=== PATIENT | male | born 1980 | race Caucasian/White ===

== ENCOUNTER 2021-07-11 14:33 | Emergency (ER) | payer OTHER, SELFPAY | END 2021-07-12 04:50 | disposition left against medical advice (07) | DX: Z53.21 Procedure and treatment not carried out due to patient leaving prior to being seen by health care provider (principal) | CPT/HCPCS: 99199 ==

== ENCOUNTER 2021-07-30 13:13 | Emergency (ER) | payer OTHER, SELFPAY ==
--- NOTE | ~2021-07-30 | XR_ITS ---
EXAMINATION: XR chest 1V portable 07/30/2021 15:04 INDICATION: Weakness. Hypertension. PROCEDURE: AP portable chest COMPARISON: 08/07/2019 FINDINGS: The lungs are clear. The cardiomediastinal silhouette is within normal limits. Small left pleural effusion.. There is no pneumothorax suspected. IMPRESSION: 1: Small left pleural effusion. Reviewed, dictated and finalized at location A.
--- NOTE | 2021-07-30 13:21 | ECG_ITS ---
Measurements Intervals [place] Rate: 100 P: 62 VT: 139 QRS: 55 QRSD: 72 T: 30 QT: 317 QTc: 409 Interpretive Statements SINUS TACHYCARDIA NONSPECIFIC T-WAVE ABNORMALITY- INFERIOR LEADS BORDERLINE ECG Electronically Signed On 07-30-2021 15:23:33 CDT by Arron Aguirre D.O.
[2021-07-30 13:30] VITALS: BP 127/84; PULSE 106; RESP 18; TEMP 37.1; O2SAT 99
[2021-07-30 14:10] LABS: Anion Gap 9 mmol/L (8-16); Blood Urea Nitrogen 25 mg/dL (9-20); Calcium 9.9 mg/dL (8.4-10.2); Carbon Dioxide 22 mmol/L (22-30); Chloride 105 mmol/L (98-107); Estimated CRCL calculation 75 ml/min; Estimated Glomerular Filt Rate > 60; Glucose 100 mg/dL (65-110); Potassium 4.7 mmol/L (3.4-5.0); Sodium 136 mmol/L (137-145)
[2021-07-30 14:26] LABS: Basophils Absolute Auto 0.1 K/mm3 (0.0-0.1); Basophils Percent Auto 0.6 % (0.2-1.2); Eosinophils Absolute Auto 0.2 K/mm3 (0-0.3); Eosinophils Percent Auto 1.6 % (0-4.4); Hematocrit 36.3 % (42.0-52.0); Hemoglobin 12.4 g/dL (14.0-18.0); Immature Granulocyte Absolute 0.09 K/mm3 (0.00-0.031); Immature Granulocyte Percent A 0.6 % (0-0.5); Lymphocytes Absolute Auto 1.91 K/mm3 (0.9-3.2); Lymphocytes Percent Auto 12.6 % (18.3-44.2); Mean Corpuscular HGB Conc 34.2 g/dl (32-36); Mean Corpuscular Hemoglobin 33.5 pg (26-34); Mean Corpuscular Volume 98.1 fl (80-100); Mean Platelet Volume 9.4 fl (7.4-10.4); Monocytes Absolute Auto 0.8 K/mm3 (0.1-0.6); Monocytes Percent Auto 5.5 % (2.6-8.5); Neutrophils Absolute Auto 12.1 K/mm3 (1.3-6.7); Neutrophils Percent Auto 79.1 % (45.5-73.1); Platelet Count Result 366 k/mm3 (150-375); Red Cell Distribution Width 13.3 % (11.5-14.5); White Blood Count 15.2 K/mm3 (4.5-10.0)
[2021-07-30] MEDS: LORazepam INJ (*CRX) 2 MG/ML VIAL 1 MG IV PUSH ×2 (15:34→18:07)
[2021-07-30] MEDS: LACTATED RINGERS 1,000 ML 999 ML IV CONT (15:35)
[2021-07-30 16:01] LABS: Add Urine Microscopic? YES; Appearance Urine Clear (Clear); Bilirubin Urine Negative (Negative); Blood Urine Negative (Negative); Color Urine Yellow (Yellow); Glucose Urine UA Negative (Negative); Ketones Urine Negative (Negative); Leukocyte Esterase Ur Negative LEU/UL (Negative); Mucus Urine Rare /lpf; Nitrate Urine Negative (Negative); Protein Urine Negative (Negative); RBC Urine 0-2 /hpf (0-2); Specific Grav Ur 1.021 (1.001-1.035); Urobilinogen Urine Negative mg/dL (<2.0); WBC Urine 0-3 /hpf
[2021-07-30 16:11] LABS: Glucose Point of Care 108 mg/dl (65-105)
--- NOTE | 2021-07-30 17:02 | ED.GENADULT ---
HPI - General Adult General Chief complaint: Arrhythmia/Palpitations Stated complaint: Palpitations Time Seen by Provider: 07/30/21 14:29 Source: patient, family and RN notes reviewed Mode of arrival: ambulatory Limitations: no limitations History of Present Illness HPI narrative: Patient is a 40-year-old male who presents to emergency department for evaluation of this morning feeling shakes and not well patient denies any URI symptoms vomiting diarrhea sick contacts patient notes that he has been compliant with his medications which are primarily psych medications patient lives at home with family. . Patient on arrival to emergency department is nondistressed he is with his family member he currently denies any pain. Related Data Allergies Allergy/AdvReac Type Severity Reaction Status Date / Time Penicillins Allergy Unknown Rash Verified 07/30/21 15:12 Review of Systems Review of Systems: All systems reviewed & are unremarkable except as noted in HPI and below PMFSH Past Medical History Medical History Bipolar disorder Blind left eye DDD (degenerative disc disease) Diabetes Essential tremor HLD (hyperlipidemia) HTN (hypertension) Hypomagnesemia MARTA (obstructive sleep apnea) Schizophrenia Tobacco abuse Exam Narrative: GENERAL: Well-appearing, well-nourished, and in no acute distress. HEAD: Normocephalic, atraumatic. EYES: PERRLA and EOMI. ENT: Nares clear, no rhinorrhea or epistaxis. Mucous membranes moist. Oropharynx without tonsillar hypertrophy exudate or other lesions. NECK: Supple. No adenopathy or masses. CHEST: Clear to auscultation. No respiratory distress. No wheezes rales or rhonchi HEART: Regular rate and rhythm. No murmur heard. Normal peripheral pulses. ABDOMEN: Soft, nontender, nondistended EXTREMITIES: Normal range of motion. No edema. SKIN: Warm, dry, no rash. NEURO: No focal deficits. Alert and oriented x3. Cranial nerves II through XII grossly intact. Normal speech and gait PSYCH: Normal mood and affect. Course Course Emergency Course: Patient evaluated in the emergency department for evaluation of tremors that began this morning there are no other signs or symptoms to suggest acute illness he was evaluated hydrated in the emergency department he is afebrile nontoxic-appearing and without emesis. Unsure as to the patient's leukocytosis. Patient will follow with primary care will return if symptoms worsen or concerns and has been given strict indications to return. Vital Signs Vital signs: Vital Signs Temperature 98.7 F 07/30/21 13:30 Pulse Rate 106 H 07/30/21 13:30 Respiratory Rate 18 07/30/21 13:30 Blood Pressure 127/84 07/30/21 13:30 Pulse Oximetry 99 07/30/21 13:30 Temperature 98.7 F 07/30/21 13:30 Pulse Rate 106 H 07/30/21 13:30 Respiratory Rate 18 07/30/21 13:30 Blood Pressure 127/84 07/30/21 13:30 Pulse Oximetry 99 07/30/21 13:30 Medical Decision Making MDM Narrative Medical decision making narrative: Patient presented with shakes not sure as to the etiology he has remained comfortable in the room nontoxic-appearing nondistressed felt appropriate for outpatient reevaluation agreeing to follow-up as instructed with primary care. Patient was made aware of his case findings treatment plan and diagnosis and findings Vital Signs Vital Signs: Vital Signs Temperature 98.7 F 07/30/21 13:30 Pulse Rate 106 H 07/30/21 13:30 Respiratory Rate 18 07/30/21 13:30 Blood Pressure 127/84 07/30/21 13:30 Pulse Oximetry 99 07/30/21 13:30 Temperature 98.7 F 07/30/21 13:30 Pulse Rate 106 H 07/30/21 13:30 Respiratory Rate 18 07/30/21 13:30 Blood Pressure 127/84 07/30/21 13:30 Pulse Oximetry 99 07/30/21 13:30 Lab Data Result diagrams: 07/30/21 13:49 07/30/21 13:49 Labs: Lab Results 07/30/21 07/30/21 07/30/21 Range/Units 13:40 13:49 1
[2021-07-30 17:40] LABS: Amphetamine Screen Urine Negative (Negative); Barbiturate Screen Urine Negative (Negative); Benzodiazepines Screen Urine Negative (Negative); Cannabinoid Screen Urine Negative (Negative); Cocaine Screen Urine Negative (Negative); Methadone Screen Urine Negative (Negative); Opiate Screen Urine Negative (Negative); Phencyclidine Screen Urine Negative (Negative)
[2021-07-30 18:13] VITALS: BP 118/79; PULSE 94; RESP 15; O2SAT 96
[2021-07-30 18:47] LABS: EDCOVIDSCREEN Negative (Negative)
[2021-07-30 19:03] VITALS: BP 114/85; PULSE 98; RESP 18; O2SAT 96
== END 2021-07-30 19:05 | disposition home or self-care (01) ==
PROVIDERS: Emergency Medicine Emergency Medical Services; Emergency Provider Emergency Medicine; PCP Family Medicine
DX: R25.1 Tremor, unspecified (principal); F31.9 Bipolar disorder, unspecified; E11.9 Type 2 diabetes mellitus without complications; E78.5 Hyperlipidemia, unspecified; I10 Essential (primary) hypertension; G47.33 Obstructive sleep apnea (adult) (pediatric); F20.9 Schizophrenia, unspecified; Z20.822 Contact with and (suspected) exposure to COVID-19; Z88.0 Allergy status to penicillin
CPT/HCPCS: 36415; 71045; 80048; 80307; 81001; 82948; 83605; 85025; 87040; 87426; 93005; 96361; 96374; 96376; 99284; C9803; J2060; J7120

== ENCOUNTER 2024-12-23 05:02 | Emergency (ER) | payer OTHER, SELFPAY ==
[2024-12-23 05:01] VITALS: BP 146/94; PULSE 110; RESP 15; TEMP 36.4; O2SAT 100
--- NOTE | 2024-12-23 05:28 | ED.EYEPROB ---
HPI - Eye Problem General Chief complaint: Eye Problems Stated complaint: eye pain History of Present Illness HPI Narrative: Patient is a 44-year-old male who presents ER with left eye pain. Worsening over last 24 hours after drying his face with a towel. No grinding. Mild photophobia in blurriness to tearing. No drainage. Related Data Allergies Allergy/AdvReac Type Severity Reaction Status Date / Time Penicillins Allergy Unknown Rash Verified 12/23/24 05:05 Review of Systems Constitutional: Constitutional: Reports no additional constitutional complaints Eyes: Eyes: Reports no additional eye complaints [facility] Past Medical History Medical History Bipolar disorder Blind left eye DDD (degenerative disc disease) Diabetes Essential tremor HLD (hyperlipidemia) HTN (hypertension) Hypomagnesemia MARTA (obstructive sleep apnea) Schizophrenia Tobacco abuse Exam Narrative: GENERAL: Well-appearing, well-nourished, and in no acute distress. HEAD: Normocephalic, atraumatic. EYES: PERRL and EOMI. Corneal abrasion left eye when viewed with magnification and fluorescence staining. No foreign body. Abrasion is just inferior the central aspect of the vision technically in the 6 o'clock position. Mild scleral injection left eye. ENT: Mucous membranes moist. EXTREMITIES: Normal range of motion. No edema. NEURO: Alert and oriented x3. PSYCH: Normal mood and affect. Course Course Emergency Course: Informed results. Discharge home. Vital Signs Vital signs: Vital Signs Temperature 97.6 F 12/23/24 05:01 Pulse Rate 110 H 12/23/24 05:01 Respiratory Rate 15 12/23/24 05:01 Blood Pressure 146/94 H 12/23/24 05:01 Pulse Oximetry 100 12/23/24 05:01 Oxygen Delivery Room Air 12/23/24 05:01 Temperature 97.6 F 12/23/24 05:01 Pulse Rate 110 H 12/23/24 05:01 Respiratory Rate 15 12/23/24 05:01 Blood Pressure 146/94 H 12/23/24 05:01 Pulse Oximetry 100 12/23/24 05:01 Oxygen Delivery Room Air 12/23/24 05:01 Discharge Plan Discharge Clinical Impression: Corneal abrasion Patient Disposition: Home, Self-Care Condition: Stable Instructions: Antibiotic Form, Corneal Abrasion (ED) Additional Instructions: Return ER if you have worsening pain in your eye, fever 100.4? F, or have additional concerns. You also may want to see an eye doctor if you have persistent discomfort. Do not wear contact lenses until your eyes healed. Patient Language: Luxembourgish Prescriptions: New erythromycin 5 mg/gram (0.5 %) ointment 1 applic LEFT EYE QID Qty: 3.5 0RF Follow-up/Referrals: Geoffrey,MD Riley [Primary Care Provider] - 1 Week
[2024-12-23] MEDS: HYDROcodone/acetaminophen (*CRX) 5-325 MG TABLET 1 TAB PO (05:45)
--- OUTSIDE RECORDS SUMMARY | 2024-12-23 05:58 | XMS_ITS | Continuity of Care Document ---
Author Organization [facility] Address [id number] [place] [address] [address] [place] [address] Phone Care Team Providers Care Psychiatric Lpn Name Role Phone Yecenia Boyd Unavailable Unavailable Advance Directives Directive Yes / No Effective Date File Name No Information Encounters Encounter Description Practice Location Reason(s) For Visit Diagnoses Date Provider Providers Copied on Encounter [facility], [address], [place], [place], [id number], [place] tel:[phone] [facility] No Information [id number] , [address], [place], [address], [place]. tel:[phone] Family History Family Member Type Diagnosis Age At Onset No Information Payers Payer name Insurance type Covered constitution party ID Authoriza tion(s) No Information Social History Type Description Quantity Date Captured Comments Sex Male Smoking Status No Information Chief Complaint And Reason For Visit No Information Reason For Referral Reason For Referral No Information History Of Present Illness Encounter Date Complaint History Of Prese nt Illness No Information Functional Status Date Functional Assessmen t No Information Instructions Date Instruction Additional Infor mation No Information Assessments Type Assessment Date No Information Patient Care Teams Name Effective Dates (start - stop) Status Members No Information
--- OUTSIDE RECORDS SUMMARY | 2024-12-23 05:58 | XMS_ITS | Data Portability ---
Author Organization [facility], Main Office Address [address] [place] [address] Assessment No assessment recorded. Plan of Treatment Reminders Order Date Submit Date Provider Last Modified By Organization Details Last Modified Time Details Appointments None recorded. Lab None recorded. Referral dermatologi st referral - Please call patient to schedule an appointment . 2023 024 [email or web address] [facility], [facility], [address], [address], 4 08:51:42 Procedures None recorded. Surgeries None recorded. Imaging US, neck, soft tissue 2023 024 [facility], [address] [place], [address], 4 08:37:39 Medication Orders omeprazole 40 mg capsule,del ayed release 2022 023 [facility], [address] [place] [address], [address], 3 14:56:26 Iron (ferrous sulfate) 325 mg (65 mg iron) tablet 2022 023 [facility], [address] [place] [address], [address], 3 14:56:26 atorvastati n 20 mg tablet 2022 023 [facility], [address] [place] [address], [address], 3 14:56:27 sertraline 100 mg tablet 2022 023 [facility], [address] [place] [address], [address], 3 14:56:27 Patient TargetsNo targets recorded. Patient InstructionsNo instructions recorded. Reason for Referral Floor Helper Referral for M ass of skin of neck eval and treat lesion to back of neck and left ear lobe Please call patient to schedule an appointment. Referring Physician: Mitch Schwartz, Family Medicine, Encounter Date: 02/10/2024 Results Created Date Observation Date Name Description Value Unit Range Abnormal Flag Note LastModifiedBy Organization Detail LastModifiedTime 06/24/2006/24/2021 HEMOG LOBIN A1C HA1C 4.8 % 4.0-6. 0 Diabe kayla Scree alayna Crite paulette: <5.7% Consi stent with absen ce of diabe kayla 5.7-6 .4% Consi stent with incre ased risk for diabe kayla (pred iabet es) >OR=6 .5% Consi stent with diabe kayla REFER ENCE: Diabe kayla Care 2016, 39(Daly ppl.1 ):s13 -s22 Not Available [facility] (Lab) [address] [place], [address], 06/24/2021 21:25:16 06/24/20 21 06/24/2021 LIPID PANEL cholesterol 180 mg/dL 140-19 9 NIH RENZO NSUS RECOM MENDA TION FOR JAMIN STERO L: ADULT CHILD LOW RISK: <200 <170 BORDE RLINE : <200- 239 ----- HIGH RISK: >240 >200 Not Available [facility] (Lab) [address] [place], [address], 06/24/2021 20:15:25 06/24/2006/24/2021 LIPID PANEL triglyceride s 188 mg/dL 0-150 high NIH RENZO NSUS REPOR T RECOM MENDA TION FOR TRIGL YCERI DEANN: ADULT CHILD LOW RISK: <150 ----- BODER LINE: 150-1 99 ----- HIGH RISK: >200 ----- Not Available [facility] (Lab) [address] [place], [address], 06/24/2021 20:15:25 06/24/20 21 06/24/2021 LIPID PANEL HDL cholesterol 83 mg/dL 40- Not Available [facility] (Lab) [address] [place], [address], 06/24/2021 20:15:25 06/24/20 21 06/24/2021 LIPID PANEL LDL cholesterol, calculated 59 mg/dL 0-130 NIH RENZO NSUS REPOR T RECOM MENDA TIONS FOR LDL: ADULT CHILD LOW RISK <130 <110 (OPTI MAL LDL) <100 ----- BORDE RLINE : 130-1 59 ----- HIGH RISK: >160 >130 A TRIGL YCERI DE RESUL T >400 INVAL IDATE S THE CALCU LATIO N FOR LDL FRACT IONAT ION - THE LDL RESUL T WILL NOT BE REPOR CECILIA. Not Available [facility] (Lab) [address] [place], [address], 06/24/2021 20:15:25 06/24/20 21 06/24/2021 MAGNE SIUM magnesium 1.5 mg/dL 1.6-2. 3 low Not Available [facility] (Lab) [address] [place], [address], 06/24/2021 20:15:18 07/16/20 23 07/16/2023 CBC W/O DIFFE RENTI AL white blood cells 10.7 x10'3 /uL 4.2-10 .8 Not Available [facility] (Lab) [address] [facility] [place], [address], 07/16/2023 19:06:52 07/16/20 23 07/16/2023 CBC W/O DIFFE RENTI AL red blood cells 4.15 x10'6 /uL 4.10-5 .80 Not Available [facility] (Lab) [address] [place], [address], 07/16/2023 19:06:52 07/16/20 23 07/16/2023 CBC W/O DIFFE RENTI AL hemoglobin 13.8 g/dL 13.2-1 7.0 Not Available [facility] (Lab) [address] [place], [address], 07/16/2023 19:06:52 07/16/20 23 07/16/2023 CBC W/O DIFFE RENTI AL hematocrit 41.1 % 39.3-5 0.0 Not Available [facility] (Lab) [address] [place], [address], 07/16/2023 19:06:52 07/16/2007/16/2023 CBC W/O DIFFE RENTI AL mean red cell volume 99.0 fL 80.0-9 7.0 high Not Available [facility] (Lab) [address] [place], [address], 07/16/2023 19:06:52 07/16/20 23 07/16/2023 CBC W/O DIFFE RENTI AL mean red cell hemoglobin 33.3 pg 27.0-3 3.0 high Not Available [facility] (Lab) [address] [place], [address], 07/16/2023 19:06:52 07/16/20 23 07/16/2023 CBC W/O DIFFE RENTI AL mean RBC HGB concentratio n 33.6 g/dL 31.0-3 6.0 Not Available [facility] (Lab) [address] [place], [address], 07/16/2023 19:06:52 07/16/2007/16/2023 CBC W/O DIFFE RENTI AL red cell distribution width 13.1 % 11.8-1 5.5 Not Available [facility] (Lab) [address] [place], [address], 07/16/2023 19:06:52 07/16/20 23 07/16/2023 CBC W/O DIFFE RENTI AL platelets 278 x10'3 /uL 150-40 0 Not Available [facility] (Lab) [address] [place], [address], 07/16/2023 19:06:52 07/16/20 23 07/16/2023 CBC W/O DIFFE RENTI AL mean platelet volume 10.1 fL 9.0-12 .4 Not Available [facility] (Lab) [address] [place], [address], 07/16/2023 19:06:52 07/16/20 23 07/16/2023 MICRO ALBUM IN RANDO M URINE microalbumin , urine 17.2 mg/L 0.0-16 .6 high Not Available [facility] (Lab) [address] [place], [address], 07/16/2023 19:39:44 07/16/20 23 07/16/2023 URINA LYSIS COMPL ETE, IRIS color YELLOW Not Available [facility] (Lab) [address] [place], [address], 07/16/2023 20:03:48 07/16/20 23 07/16/2023 URINA LYSIS COMPL ETE, IRIS appear CLEAR Not Available [facility] (Lab) [address] [place], [address], 07/16/2023 20:03:48 07/16/20 23 07/16/2023 URINA LYSIS COMPL ETE, IRIS specific gravity 1.024 1.001- 1.030 Not Available [facility] (Lab) [address] [place], [address], 07/16/2023 20:03:48 07/16/20 23 07/16/2023 URINA LYSIS COMPL ETE, IRIS pH 5.5 pH_un its 5.0-9. 0 Not Available [facility] (Lab) [address] [place], [address], 07/16/2023 20:03:48 07/16/20 23 07/16/2023 URINA LYSIS COMPL ETE, IRIS leukocytes NEGATI VE shonda/u L negati ve- Not Available [facility] (Lab) [address] [facility] [place], [address], 07/16/2023 20:03:48 07/16/20 23 07/16/2023 URINA LYSIS COMPL ETE, IRIS nitrite NEGATI VE negati ve- Not Available [facility] (Lab) [address] [place], [address], 07/16/2023 20:03:48 07/16/20 23 07/16/2023 URINA LYSIS COMPL ETE, IRIS protein 10 mg/dL negati ve- abnormal Not Available [facility] (Lab) [address] [place], [address], 07/16/2023 20:03:48 07/16/20 23 07/16/2023 URINA LYSIS COMPL ETE, IRIS glucose NORMAL mg/dL normal - Not Available [facility] (Lab) [address] [place], [address], 07/16/2023 20:03:48 07/16/20 23 07/16/2023 URINA LYSIS COMPL ETE, IRIS ketones NEGATI VE mg/dL negati ve- Not Available [facility] (Lab) [address] [place], [address], 07/16/2023 20:03:48 07/16/20 23 07/16/2023 URINA LYSIS COMPL ETE, IRIS urobilinogen NORMAL mg/dL normal - Not Available [facility] (Lab) [address] [place], [address], 07/16/2023 20:03:48 07/16/20 23 07/16/2023 URINA LYSIS COMPL ETE, IRIS bilirubin NEGATI VE mg/dL negati ve- Not Available [facility] (Lab) [address] [place], [address], 07/16/2023 20:03:48 07/16/20 23 07/16/2023 URINA LYSIS COMPL ETE, IRIS blood NEGATI VE mg/dL negati ve- Not Available [facility] (Lab) [address] [place], [address], 07/16/2023 20:03:48 07/16/20 23 07/16/2023 URINA LYSIS COMPL ETE, IRIS white blood cells 0-8 /i??h pfi?? 0-8 Not Available [facility] (Lab) [address] [place], [address], 07/16/2023 20:03:48 07/16/20 23 07/16/2023 URINA LYSIS COMPL ETE, IRIS red blood cells 0-4 /i??h pfi?? 0-4 Not Available [facility] (Lab) [address] [place], [address], 07/16/2023 20:03:48 07/16/20 23 07/16/2023 URINA LYSIS COMPL ETE, IRIS bacteria OCCASI ONAL abnormal Not Available [facility] (Lab) [address] [place], [address], 07/16/2023 20:03:48 07/16/20 23 07/16/2023 URINA LYSIS COMPL ETE, IRIS mucous OCCASI ONAL /i??l pfi?? abnormal Not Available [facility] (Lab) [address] [place], [address], 07/16/2023 20:03:48 07/16/20 23 07/16/2023 URINA LYSIS COMPL ETE, IRIS squamous epithelial OCCASI ONAL /i??l pfi?? abnormal Not Available [facility] (Lab) [address] [place], [address], 07/16/2023 20:03:48 07/16/20 23 07/16/2023 IRON/ TIBC PANEL total iron binding capacity 358 mcg/d L 265-47 5 Not Available [facility] (Lab) [address] [place], [address], 07/16/2023 21:37:58 07/16/20 23 07/16/2023 IRON/ TIBC PANEL % transferrin saturation 28 % 20-55 Not Available [facility] (Lab) [address] [place], [address], 07/16/2023 21:37:58 07/16/20 23 07/16/2023 IRON/ TIBC PANEL unsaturated iron bind capacity 257 mcg/d L 126-38 2 Not Available [facility] (Lab) [address] [place], [address], 07/16/2023 21:37:58 07/16/20 23 07/16/2023 IRON/ TIBC PANEL iron 101 mcg/d L 42-175 Not Available [facility] (Lab) [address] [place], [address], 07/16/2023 21:37:58 07/16/20 23 07/16/2023 VITAM IN D 25-HY DROXY [id number] 29.1 NG/mL 30-100 low Vitam in D Statu s: Defic ient: <20 ng/mL Insuf ficie nt: 20-29 ng/mL Suffi cient : 30-10 0 ng/mL Not Available [facility] (Lab) [address] [place], [address], 07/16/2023 21:36:13 07/16/20 23 07/16/2023 COMPR EHENS ZORA METAB OLIC PANEL sodium 137 mmol/ L 137-14 5 Not Available [facility] (Lab) [address] [place], [address], 07/16/2023 21:37:34 07/16/20 23 07/16/2023 COMPR EHENS ZORA METAB OLIC PANEL potassium 4.8 mmol/ L 3.5-5. 1 Not Available [facility] (Lab) [address] [place], [address], 07/16/2023 21:37:34 07/16/20 23 07/16/2023 COMPR EHENS ZORA METAB OLIC PANEL chloride 107 mmol/ L 98-107 Not Available [facility] (Lab) [address] [place], [address], 07/16/2023 21:37:34 07/16/20 23 07/16/2023 COMPR EHENS ZORA METAB OLIC PANEL carbon dioxide 21 mmol/ L 22-30 low Not Available [facility] (Lab) [address] [place], [address], 07/16/2023 21:37:34 07/16/20 23 07/16/2023 COMPR EHENS ZORA METAB OLIC PANEL anion gap 13.8 mmol/ L 14-22 low Not Available [facility] (Lab) [address] [place], [address], 07/16/2023 21:37:34 07/16/20 23 07/16/2023 COMPR EHENS ZORA METAB OLIC PANEL glucose 92 mg/dL 70-99 Not Available [facility] (Lab) [address] [place], [address], 07/16/2023 21:37:34 07/16/20 23 07/16/2023 COMPR EHENS ZORA METAB OLIC PANEL BUN 16 mg/dL 8-19 Not Available [facility] (Lab) [address] [place], [address], 07/16/2023 21:37:34 07/16/20 23 07/16/2023 COMPR EHENS ZORA METAB OLIC PANEL creatinine 1.12 mg/dL 0.66-1 .25 Not Available [facility] (Lab) [address] [place], [address], 07/16/2023 21:37:34 07/16/20 23 07/16/2023 COMPR EHENS ZORA METAB OLIC PANEL GFR >60 Refer ence Range : [place] ge GFR Healt hy Adult : >60 mL/mi n/1.7 3 m2 Chron ic Kidne y Disea se: 15-60 mL/mi n/1.7 3 m2 Kidne y Failu re: <15/m L/min /1.73 m2 www.n iddk. nih.g ov The MDRD study equat ion has not been valid ated in child nayeli <18 years of age; pregn ant women ; the elder ly >85 years of age; or in some racia l or ethni c subgr oups, such as Hispa nics. Outsi de the valid ated prisca eters , estim ated GFR is less accur ate, requi ring clini beau judgm ent on a case- by-ca se basis . Clini beau inter preta tion for other races and ages must be made by the clini ethan. The MDRD study equat ion has not been valid ated for the evalu ation of serum creat inine relat ed to nutri raciel l statu s or medic ation usage . For perso ns <18 years of age, a pedia tric GFR calcu lator is avail able on the [facility] websi te: https :[email or web address] escobar.bailey chance/pr ofess ional s/kdo qi/gf r_cal culat or Not Available [facility] (Lab) [address] [place], [address], 07/16/2023 21:37:34 07/16/20 23 07/16/2023 COMPR EHENS ZORA METAB OLIC PANEL alkaline phosphatase 88 U/L 38-126 Not Available [facility] (Lab) [address] [place], [address], 07/16/2023 21:37:34 07/16/20 23 07/16/2023 COMPR EHENS ZORA METAB OLIC PANEL alanine aminotransfe rase 17 U/L 0-50 Not Available [facility] (Lab) [address] [place], [address], 07/16/2023 21:37:34 07/16/20 23 07/16/2023 COMPR EHENS ZORA METAB OLIC PANEL aspartate aminotransfe rase 22 U/L 15-46 Not Available [facility] (Lab) [address] [place], [address], 07/16/2023 21:37:34 07/16/20 23 07/16/2023 COMPR EHENS ZORA METAB OLIC PANEL bilirubin, total 0.10 mg/dL 0.20-1 .30 low Not Available [facility] (Lab) [address] [place], [address], 07/16/2023 21:37:34 07/16/20 23 07/16/2023 COMPR EHENS ZORA METAB OLIC PANEL calcium 9.3 mg/dL 8.4-10 .2 Not Available [facility] (Lab) [address] [place], [address], 07/16/2023 21:37:34 07/16/20 23 07/16/2023 COMPR EHENS ZORA METAB OLIC PANEL total protein 7.7 g/dL 6.3-8. 2 Not Available [facility] (Lab) [address] [place], [address], 07/16/2023 21:37:34 07/16/20 23 07/16/2023 COMPR EHENS ZORA METAB OLIC PANEL albumin 4.5 g/dL 3.4-5. 0 Not Available [facility] (Lab) [address] [place], [address], 07/16/2023 21:37:34 07/16/20 23 07/16/2023 COMPR EHENS ZORA METAB OLIC PANEL globulin 3.2 g/dL 2.6-4. 2 Not Available [facility] (Lab) [address] [place], [address], 07/16/2023 21:37:34 07/16/20 23 07/16/2023 COMPR EHENS ZORA METAB OLIC PANEL A/G ratio 1.4 ratio 1.0-2. 0 Not Available [facility] (Lab) [address] [place], [address], 07/16/2023 21:37:34 07/16/20 23 07/16/2023 LIPID PANEL cholesterol 207 mg/dL 140-19 9 high NIH RENZO NSUS RECOM MENDA TION FOR JAMIN STERO L: ADULT CHILD LOW RISK: <200 <170 BORDE RLINE : <200- 239 ----- HIGH RISK: >240 >200 Not Available [facility] (Lab) [address] [place], [address], 07/16/2023 21:37:35 07/16/20 23 07/16/2023 LIPID PANEL triglyceride s 331 mg/dL 0-150 high NIH RENZO NSUS REPOR T RECOM MENDA TION FOR TRIGL YCERI DEANN: ADULT CHILD LOW RISK: <150 ----- BODER LINE: 150-1 99 ----- HIGH RISK: >200 ----- Not Available [facility] (Lab) [address] [place], [address], 07/16/2023 21:37:35 07/16/20 23 07/16/2023 LIPID PANEL HDL cholesterol 52 mg/dL 40- Not Available [facility] (Lab) [address] [place], [address], 07/16/2023 21:37:35 07/16/20 23 07/16/2023 LIPID PANEL LDL cholesterol, calculated 89 mg/dL 0-130 NIH RENZO NSUS REPOR T RECOM MENDA TIONS FOR LDL: ADULT CHILD LOW RISK <130 <110 (OPTI MAL LDL) <100 ----- STACIEDE RLINE : 130-1 59 ----- HIGH RISK: >160 >130 A TRIGL YCERI DE RESUL T >400 INVAL IDATE S THE CALCU LATIO N FOR LDL FRACT IONAT ION - THE LDL RESUL T WILL NOT BE REPOR CECILIA. Not Available [facility] (Lab) [address] [place], [address], 07/16/2023 21:37:35 07/16/20 23 07/16/2023 MAGNE SIUM magnesium 1.8 mg/dL 1.6-2. 3 Not Available [facility] (Lab) [address] [place], [address], 07/16/2023 21:37:38 07/16/20 23 07/16/2023 HEMOG LOBIN A1C HA1C 5.3 % 4.0-6. 0 Diabe kayla Scree alayna Crite paulette: <5.7% Consi stent with absen ce of diabe kayla 5.7-6 .4% Consi stent with incre ased risk for diabe kayla (pred iabet es) >OR=6 .5% Consi stent with diabe kayla REFER ENCE: Diabe kayla Care 2016, 39(Daly ppl.1 ):s13 -s22 Not Available [facility] (Lab) [address] [place], [address], 07/16/2023 22:19:00 07/16/20 23 07/16/2023 VITAM IN B12 (AALIYAH AI ) vb12 740 pg/mL 239-93 1 Not Available [facility] (Lab) [address] [place], [address], 07/16/2023 22:41:24 07/16/20 23 07/16/2023 FOLAT E, SERUM /PLAS MA folate 12.6 NG/mL 2.76-2 0.0 Not Available [facility] (Lab) [address] [place], [address], 07/16/2023 22:41:25 07/30/20 21 07/30/2021 XR, chest No observ ation record ed. [id number], [place], [address], 01/20/2023 01:23:36 03/03/20 24 03/02/2024 US, neck, soft tissu e No observ ation record ed. [email or web address] [facility] [address] [facility], [place], [address], 03/08/2024 10:17:18 Result Notes None recorded. Problems Name Problem SNOMED Code Status Onset Date Resolution Date Notes Provider Name and Address Organization Details Recorded Time Chronic neck pain 23088119145 07 Active 2019 [facility] Available [facility] 3 01:03:54 Mixed hyperchol esterolem ia and hypertrig lyceridem ia 077797393 Active 2017 Mell Wilkes APRN [address] [facility], [facility] [address], [place], [address] , [employer] 4 12:26:45 Chronic thoracic back pain 38944655401 9103 Active 2019 Not Available [employer] 3 01:03:54 Bipolar disorder 77272375 Active 2017 Mell Wilkes APRN [address] [facility], [address], [place], [address] , [employer] 4 12:25:50 Seborrhei c dermatiti s of scalp 747173374 Active 2018 Not Available [facility] 3 01:03:54 Snoring symptoms 430296879 Active 2017 Not Available [facility] 3 01:03:54 Hypomagne semia 567633055 Active 2020 Not Available [facility] 3 01:03:54 Anxiety disorder 430005982 Active 2020 Not Available [facility] 3 01:03:54 Overweigh t 794023505 Active 2019 Not Available [facility] 3 01:03:54 Degenerat ion of lumbar intervert ebral disc 31831333 Active 2019 Mell Wilkes APRN [address], [address], [place], [address] , [employer] 4 12:26:04 Gastroeso phageal reflux disease without esophagit is 591804216 Active 2017 Mell Wilkes APRN [address], [address], [place], [address] , [employer] 4 12:26:16 Blind left eye 942031387 Completed 201708/07/2020 Not Available [facility] 3 01:03:55 Chronic low back pain 452966255 Active 2019 Mell Wilkes APRN [address], [address], [place], [address] , [employer] 4 12:25:57 Pruritic disorder 074261389 Active 2017 Not Available [facility] 3 01:03:55 Back problem 691121950 Completed 201709/06/2018 Not Available [facility] 3 01:03:55 Hypertrig lyceridem ia 541780482 Active 2020 Mell Wilkes APRN [address], [address], [place], [address] , [employer] 4 12:26:48 Hypertrig lyceridem ia 065897912 Completed 201808/07/2020 Mell Wilkes APRN [address], [address], [place], [address] , [employer] 4 12:26:48 Type 2 diabetes mellitus without complicat ion 567658518 Active 2019 Mell Wilkes APRN [address], [address], [place], [address] , [employer] 4 12:26:19 Vitamin D deficienc y 54491345 Active 2017 Mell Wilkes APRN [address], [address], [place], [address] , [employer] 4 12:26:23 Chronic dermatiti s 79852387 Active 2017 Mell Wilkes APRN [address], [address], [place], [address] , [employer] 4 12:25:53 Depressiv e disorder 10481263 Active 2017 Not Available [facility] 3 01:03:56 Hypertens zora disorder 72674396 Active 2017 Mell Wilkes APRN [address], [place], [address] , [employer] 4 12:27:16 Obesity 322926433 Completed 201708/07/2020 Not Available [facility] 3 01:03:56 Uncontrol led type 2 diabetes mellitus 375335123 Completed 201808/07/2020 Not Available [facility] [facility] 3 01:03:57 Anxiety 20978557 Active 2017 DAVID Cano [address], [place], [address] , [employer] 4 12:25:47 Hyperlipi demia 40030395 Active 2017 DAVID Cano [address], [place], [address] , [employer] 4 12:26:58 Schizophr enia 11336659 Active 2017 Mell Wilkes APRN [address], [address], [place], [address] , [employer] 4 12:26:36 Essential tremor 270933434 Active 2017 DAVID Cano [address], [place], [address] , [employer] 4 12:26:09 Sleep apnea 49464101 Active 2017 Mell Wilkes APRN [address], [address], [place], [address] , [facility] [employer] 4 12:26:30 Sebaceous cyst of skin 524226965 Active 2019 Not Available [facility] 3 01:03:58 Smoker 61167265 Active 2017 Mell Wilkes APRN [address], [address], [place], [address] , [employer] 4 12:26:27 Degenerat ion of intervert ebral disc 46907788 Active 2019 Mell Wilkes APRN [address], [address], [place], [address] , [employer] [facility] [employer] 4 12:26:00 Obstructi ve sleep apnea syndrome 06481275 Active 2019 Not Available [facility] 3 01:03:58 Essential hypertens ion 34548533 Active 2022 Mell Wilkes APRN [address], [address], [place], [address] , [employer] [place] [facility] [employer] [facility] 4 12:26:07 Hyperglyc emia due to type 2 diabetes mellitus 49506460282 9109 Active 2022 MALIKA Shine [address], [address], [place], [address] , [employer] [facility] [employer] 3 14:48:58 Mood disorder 41876852 Active 2022 Mell Wilkes APRN [address], [address], [place], [address] , [facility] [employer] 4 12:26:40 Anemia 728680667 Active 2022 Mell Wilkes APRN [address], [place], [address] , [facility] [employer] 4 12:25:44 Fatigue 99253030 Active 2022 MALIKA Shine [address] [facility], [address] [address], [place], [address] , [facility] [employer] [facility] 3 15:47:41 Mass of skin of neck 34647721900 175740 Active 2023 ARACELI Travis [address] [address], [place], [address] , [facility] [employer] [facility] 4 15:15:45 Mass of ear structure 838975276 Active 2023 ARACELI Travis [address] [address], [place], [address] , [facility] [employer] 4 15:15:52 Problem Notes None recorded. Procedures Surgical History None recorded. Imaging Results Imaging Date Name Status LastModified by Organiz ation Details LastModified Time 07/30/2021 XR, chest completed [id number] [place], [place] [id number] [facility] [address] [place] [address], [id number], 01/20/2023 01:23:36 03/02/2024 US, neck, soft tissue completed [email or web address] [facility] [address] [place], [address], 03/08/2024 10:17:18 Procedure Notes None recorded. Medical Equipment None Reported. Allergies Allergen ID Allergen Name Allergen Category Reaction Reaction Severity Criticality Documentation Date Start Date Code Code System Note Provider Name and Address Organization Details Recorded Time 2129 Product containin g penicilli n and antibioti c (product) medicatio n Not available Not available Not available 01/20/2023 [id number] SNOMED Not Available [facility] 3 01:22:36 Medications Name Sig Start Date Stop Date Status Note LastModified by Organization Details LastModified Time cyclobenz aprine 10 mg tablet TAKE 1 TABLET BY MOUTH EVERY 12 HOURS NEEDED 06/18 completed Not Available Not Available Not Available ziprasido ne 80 mg capsule TAKE 1 CAPSULE BY MOUTH TWICE DAILY active Not Available Not Available No t Available metformin 500 mg tablet 10/31 completed Not Available Not Available Not Available primidone 50 mg tablet TAKE 2 TABLETS BY MOUTH EVERY DAY AT BEDTIME 06/18 completed Not Available Not Available Not Available bupropion HCl SR 150 mg tablet,12 hr sustained -release TK 1 T PO BID B MEALS active Not Available Not Available No t Available atorvasta tin 20 mg tablet TAKE 1 TABLET BY MOUTH EVERY NIGHT AT BEDTIME active Not Available Not Available No t Available nicotine 14 mg/24 hr daily transderm al patch APPLY 1 PATCH TOPICALL Y TO THE SKIN EVERY DAY DIRECTED active Not Available Not Available No t Available quetiapin e 300 mg tablet active Not Available Not Available Not Available ranitidin e 300 mg tablet Take 1 tablet every day by oral route at bedtime for 30 days. 01/11 completed Not Available Not Available Not Available sertralin e 100 mg tablet TAKE 1 TABLET BY MOUTH EVERY DAY IN THE MORNING 2023 active Not Available Not Available Not Avai lable quetiapin e 200 mg tablet TAKE 1 TABLET BY MOUTH EVERY DAY IN THE MORNING 06/18 completed Not Available Not Available Not Available olanzapin e 5 mg tablet TAKE 1 TABLET BY MOUTH ONCE DAILY AT BEDTIME FOR 30 DAYS 02/06 completed Not Available Not Available Not Available metformin 850 mg tablet Take 1 tablet twice a day by oral route with meals for 30 days. 10/31 completed Not Available Not Available Not Available B-D Slip Tip Syringe 20 mL B-D pen needles, to be used with insulin 3-4 times per day as directed . 06/18 completed Not Available Not Available Not Available omeprazol e 40 mg capsule,d elayed release TAKE 1 CAPSULE BY MOUTH EVERY DAY BEFORE BREAKFAS T active Not Available Not Available No t Available triamcino lone acetonide 0.1 % topical cream APPLY A THIN LAYER TO THE AFFECTED AREA(S) BY TOPICAL ROUTE 2 TIMES PER DAY 07/02 completed Not Available Not Available Not Available nystatin- triamcino lone 100,000 unit/gram -0.1 % topical ointment APPLY TO THE AFFECTED AREA(S) BY TOPICAL ROUTE 2 TIMES PER DAY active Not Available Not Available No t Available meloxicam 7.5 mg tablet TAKE 1 TABLET BY MOUTH EVERY 12 HOURS NEEDED 06/18 completed Not Available Not Available Not Available prazosin 5 mg capsule TAKE 1 CAPSULE BY MOUTH EVERY DAY AT BEDTIME 06/18 completed Not Available Not Available Not Available famotidin e 20 mg tablet 07/02 completed Not Available Not Available Not Available magnesium oxide 400 mg (241.3 mg magnesium ) tablet TAKE 1 TABLET BY MOUTH TWICE DAILY EVERY DAY 06/18 completed Not Available Not Available Not Available gemfibroz il 600 mg tablet TK 1 T PO BID active Not Available Not Available No t Available cephalexi n 500 mg capsule TAKE 1 CAPSULE BY MOUTH THREE TIMES DAILY FOR 7 DAYS 10/31 completed Not Available Not Available Not Available erythromy kenney 5 mg/gram (0.5 %) eye ointment active Not Available Not Available Not Available metformin 1,000 mg tablet TAKE 1 TABLET BY MOUTH TWICE DAILY WITH MEALS 06/18 completed Not Available Not Available Not Available ranitidin e 150 mg tablet 2 times daily active Not Available Not Available No t Available buspirone 10 mg tablet TAKE 1 TABLET BY MOUTH EVERY 12 HOURS NEEDED 06/18 completed Not Available Not Available Not Available clotrimaz ole-betam ethasone 1 %-0.05 % topical cream APPLY TO THE AFFECTED AND SURROUND ING AREAS OF SKIN BY TOPICAL ROUTE 2 TIMES PER DAY IN THE MORNING AND EVENING FOR 2 WEEKS 04/07 completed Apply to affected area bid for next 2-3 weeks as directed . Not Available Not Available Not Available lisinopri l 10 mg tablet TAKE 1/2 TABLET BY MOUTH DAILY 07/02 completed Not Available Not Available Not Available divalproe x ER 500 mg tablet,ex tended release 24 hr TAKE 2 TABLETS BY MOUTH EVERY DAY AT BEDTIME active Not Available Not Available No t Available promethaz ine 25 mg tablet TAKE 1 TABLET BY MOUTH EVERY 8 HOURS NEEDED 08/07 completed Not Available Not Available Not Available omeprazol e 20 mg capsule,d elayed release TAKE 1 CAPSULE BY MOUTH EVERY DAY 30 MINUTES BEFORE BREAKFAS T 07/02 completed Not Available Not Available Not Available olanzapin e 15 mg tablet 08/23 completed Not Available Not Available Not Available lisinopri l 5 mg tablet TAKE 1 TABLET BY MOUTH EVERY DAY 06/18 completed Not Available Not Available Not Available ziprasido ne 40 mg capsule active Not Available Not Available Not Available ibuprofen 600 mg tablet 08/14 completed Not Available Not Available Not Available Vitamin D2 1,250 mcg (50,000 unit) capsule Take 1 capsule every week by oral route as directed for 30 days. 06/18 completed Not Available Not Available Not Available ketoconaz ole 2 % topical cream APPLY TO THE AFFECTED AREA(S) BY TOPICAL ROUTE ONCE DAILY 04/07 completed Not Available Not Available Not Available metformin ER 500 mg tablet,ex tended release 24 hr TAKE 1 TABLET BY MOUTH EVERY OTHER DAY AFTER MEALS 06/18 completed Not Available Not Available Not Available sertralin e 50 mg tablet TAKE 1 TABLET BY MOUTH EVERY DAY IN THE MORNING 06/18 completed Not Available Not Available Not Available lisinopri l 2.5 mg tablet Take 1 tablet every day by oral route in the morning for 90 days. 06/18 completed Not Available Not Available Not Available doxycycli ne hyclate 100 mg tablet Take 1 tablet twice a day by oral route as directed for 10 days. active Not Available Not Available No t Available olanzapin e 20 mg tablet po once daily 06/18 completed Not Available Not Available Not Available prazosin 2 mg capsule TAKE 1 CAPSULE BY MOUTH EVERY DAY AT BEDTIME 06/18 completed Not Available Not Available Not Available pen needle, diabetic 31 gauge x 1/4 06/18 completed Not Available Not Available Not Available bupropion HCl XL 300 mg 24 hr tablet, extended release TAKE 1 TABLET BY MOUTH EVERY DAY 06/18 completed Not Available Not Available Not Available bupropion HCl XL 150 mg 24 hr tablet, extended release TK 1 T PO QD IN THE MORNING active Not Available Not Available No t Available Alcohol Prep Pads Apply 1 pad every 6-8 hours by topical route as needed for 30 days. active Not Available Not Available No t Available selenium sulfide 2.25 % shampoo APPLY TO THE AFFECTED AREA(S) BY TOPICAL ROUTE TWICE WEEKLY 07/02 completed Not Available Not Available Not Available fenofibra te 160 mg tablet TAKE 1 TABLET BY MOUTH EVERY DAY IN THE MORNING 06/18 completed Not Available Not Available Not Available omeprazol e 40mg po twice daily 09/06 completed Not Available Not Available Not Available bupropion HCl 150 mg po twice daily 08/14 completed Not Available Not Available Not Available multivita min Take one tab daily active Not Available Not Available No t Available metformin ER 500 mg 24 hr tablet,ex tended release (gastric retention ) Take 1 tablet every other day by oral route after meals for 90 days. 06/18 completed Not Available Not Available Not Available FeroSul 325 mg (65 mg iron) tablet Take 1 tablet every day by oral route. active Not Available Not Available No t Available Lantus Solostar U-100 Insulin 100 unit/mL (3 mL) subcutane ous pen INJECT 5 UNITS UNDER THE SKIN EVERY DAY DIRECTED STOP BASAGLAR active Not Available Not Available No t Available Latuda 80 mg tablet TAKE 1 TABLET BY MOUTH TWICE DAILY WITH MEALS 06/18 completed Not Available Not Available Not Available OneTouch Verio test strips USE DIRECTED TO TEST BLOOD SUGAR 06/18 completed Not Available Not Available Not Available Vascepa 1 gram capsule TAKE 2 CAPSULES BY MOUTH TWICE DAILY DIRECTED 05/29 completed Not Available Not Available Not Available aloglipti n 25 mg tablet TAKE 1 TABLET BY MOUTH EVERY DAY IN THE MORNING 05/29 completed Not Available Not Available Not Available Invokana 300 mg tablet TAKE 1 TABLET BY MOUTH ONCE DAILY 10/31 completed Not Available Not Available Not Available Jardiance 25 mg tablet TAKE 1 TABLET BY MOUTH EVERY DAY IN THE EVENING active Not Available Not Available No t Available selenium sulfide 2.5 % lotion APPLY TO WET SCALP BY TOPICAL ROUTE TWICE WEEKLY WORK INTO A FULL LATHER, LEAVE ON SCALP FOR 2-3 MINUTES, RINSE THOROUGH LY, AND THEN PAT DRY active Not Available Not Available No t Available TechLITE Pen Needle 31 gauge x 5/16 USE WITH INSULIN 3 TO 4 TIMES PER DAY UTD 06/18 completed Not Available Not Available Not Available bupropion HCl 150 mg tablet,12 hr sustained -release( smoking deterrent ) TAKE 1 TABLET BY MOUTH IN THE MORNING AND AT NOON 06/18 completed Not Available Not Available Not Available Admelog SoloStar U-100 Insulin lispro 100 unit/mL subcutane ous pen INJECT 3 UNITS THREE TIMES DAILY WITH MEALS DIRECTED 03/13 completed Not Available Not Available Not Available Steglatro 5 mg tablet TAKE 1 TABLET BY MOUTH EVERY DAY IN THE MORNING 05/29 completed Not Available Not Available Not Available OneTouch Ultra Blue Test Strip USE TO CHECK BLOOD SUGAR 2 TO 4 TIMES DAILY 06/18 completed Not Available Not Available Not Available FreeStyle Inga 14 Day [place] USE DIRECTED 06/18 completed Not Available Not Available Not Available FreeStyle Inga 14 Day Sensor kit USE DIRECTED 06/18 completed Not Available Not Available Not Available OneTouch Ultra2 Meter USE TO CHECK BLOOD SUGAR 2 TO 4 TIMES DAILY 06/18 completed Not Available Not Available Not Available OneTouch Delica Plus Lancet 33 gauge USE 2 TO 4 TIMES DAILY DIRECTED 06/18 completed Not Available Not Available Not Available Vitals Date Recorded Body mass index (BMI) Body mass index (BMI) Provider Name and Address Organization Details Last Updated DateTime 01/20/2023 24.1 kg/m2 23.6 kg/m2 Not Available [facility] 01/20/2023 00:53:12 Date Recorded Body height Body height Provider Name and Address Organization Details Last Updated DateTime 01/20/2023 187.96 cm 187.96 cm Not Available [facility] 00:53:16 Date Recorded Oxygen saturation Oxygen saturation in Arterial blood by Pulse oximetry Oxygen saturation Oxygen saturation in Arterial blood by Pulse oximetry Provider Name and Address Organization Details Last Updated DateTime 97 % 97 % 97 % 97 % Not Available [facility] 00:53:17 Date Recorded Heart rate Heart rate Respiratory rate Respiratory rate Provider Name and Address Organization Details Last Updated DateTime 01/20/2023 98 /min 97 /min 16 /min 16 /min Not Available [facility] 01/20/2023 00:53:18 Date Recorded Body temperature Body temperature Provider Name and Address Organization Details Last Updated DateTime 01/20/2023 97.9 [degF] 98.4 [degF] Not Available [facility] 01/20/2023 00:53:20 Date Recorded Body weight Body weight Provider Name and Address Organization Details Last Updated DateTime 01/20/2023 55380.37 g 51672 g Not Available [facility] 0 01/20/2023 00:53:21 Date Recorded Body weight Provider Name an d Address Organization Details Last Updated DateTime 06/18/2023 85735.58 g Rozina aavlos RN [facility] [employer] [facility] 06/18/2023 14:11:39 Date Recorded Body mass index (BMI) Body height Provider Name and Address Organization Details Last Updated DateTime 06/18/2023 28.8 kg/m2 182.88 cm Rozina Guidry RN [facility] [email or web address] [facility] 06/18/2023 14:12:21 Date Recorded Body temperature Provider Name a nd Address Organization Details Last Updated DateTime 06/18/2023 96.2 [degF] Rozina Guidry RN [facility] [email or web address] [facility] 06/18/2023 14:12:26 Date Recorded Heart rate Provider Name an d Address Organization Details Last Updated DateTime 06/18/2023 107 /min Rozina avalos RN [facility] [email or web address] [facility] 06/18/2023 14:14:41 Date Recorded Oxygen saturation Oxygen saturation in Arterial blood by Pulse oximetry Provider Name and Address Organization Details Last Updated DateTime 06/18/2023 98 % 98 % Rozina Guidry RN [facility] [email or web address] [facility] 06/18/2023 14:13:41 Date Recorded Body height Provider Name an d Address Organization Details Last Updated DateTime 07/16/2023 182.88 cm Viviana Pete LPN [facility] [email or web address] [facility] 07/16/2023 13:20:55 Date Recorded Body height Provider Name an d Address Organization Details Last Updated DateTime 02/10/2024 182.88 cm SIOBHAN Paulino [facility] [employer] [facility] 02/10/2024 15:07:22 Date Recorded Body mass index (BMI) Body weight Provider Name and Address Organization Details Last Updated DateTime 02/10/2024 28.1 kg/m2 96506.62 g Fransisca Neves RN [facility] [email or web address] [facility] 02/10/2024 15:07:26 Date Recorded Body temperature Provider Name a nd Address Organization Details Last Updated DateTime 02/10/2024 98.6 [degF] SIOBHAN Paulino [facility] [employer] [facility] 02/10/2024 15:08:04 Date Recorded Heart rate Provider Name an d Address Organization Details Last Updated DateTime 02/10/2024 98 /min SIOBHAN Paulino - [facility] [email or web address] [facility] 02/10/2024 15:08:10 Date Recorded Oxygen saturation Oxygen saturation in Arterial blood by Pulse oximetry Provider Name and Address Organization Details Last Updated DateTime 02/10/2024 98 % 98 % Fransisca Neves RN [facility] [email or web address] [facility] 02/10/2024 15:08:12 Date Recorded Systolic blood pressure Diastolic blood pressure Systolic blood pressure Diastolic blood pressure Provider Name and Address Organization Details Last Updated DateTime 01/20/2023 108 mm[Hg] 74 mm[Hg] 106 mm[Hg] 66 mm[Hg] Not Available [employer] 00:53:15 Date Recorded Systolic blood pressure Diastolic blood pressure Provider Name and Address Organization Details Last Updated DateTime 06/18/2023 142 mm[Hg] 98 mm[Hg] Rozina Guidry RN [facility] [email or web address] [facility] 06/18/2023 14:14:37 Date Recorded Systolic blood pressure Diastolic blood pressure Provider Name and Address Organization Details Last Updated DateTime 02/10/2024 136 mm[Hg] 90 mm[Hg] Fransisca Neves RN [facility] [email or web address] [facility] 02/10/2024 15:09:13 Social History Question Answer Notes LastModified by Organizat ion Details LastModified Time Tobacco Smoking Status Current Every Day Smoker Rozina Guidry RN [facility] [email or web address] [facility] 06/18/2023 14:17:30 What Is Your Level Of Alcohol Consumption? Occasional Information not available 06/18/2023 What Is Your Level Of Caffeine Consumption? None Information not available 06/18/2023 Which Illicit Or Recreational Drugs Have You Used? Marijuana Information not available 06/18/2023 How Much Tobacco Do You Smoke? 1 PPD Information not available 06/18/2023 Do You Use Any Illicit Or Recreational Drugs? Yes Information not available 06/18/2023 Sex: Unknown Functional Status None recorded. Mental Status None recorded. Family History Relationship Description Onset Age of this Age Resolved Age Notes LastModified by Organization Details LastModified Time Father No current problems or disability [email or web address] [id number] Not available 01/20/2023 00:52:50 Mother No current problems or disability [email or web address] [id number] Not available 01/20/2023 00:52:50 Medical History No medical history recorded. Immunizations Vaccine Type Date Status Note Provider Nam e and Address Organization Details Recorded Time Influenza, split virus, quadrivalent, PF 10/04/2018 completed Not Available [employer] 01:21:56 Past Encounters Encounter ID Performer Location Encounter Start Date Encounter Closed Date Diagnosis/Indication Diagnosis SNOMED-CT Code Diagnosis ICD10 Code Diagnosis Note [id number] [address] 02/06/2021 00:00:00 02/06/2021 14:36:[id number] [address] 03/13/2021 00:00:00 03/13/2021 16:05:[id number] [address] 04/07/2021 00:00:00 04/07/2021 14:36:[id number] [address] 07/02/2021 00:00:00 07/02/2021 15:14:48 [id number] MALIKA Shine [facility] [address] [place] [address] 06/18/2023 13:54:55 06/18/2023 15:32:28 Hyperlipidemia 76411984 E78.5 Chronic, current status unknownDis cussed need for regular exercise, increase intake of water/vege tables/fib er. Decrease the amount of greasy/fat ty/fried foods in diet. Consider taking a daily fish oil supplement .Continue atorvastat in 20mg QHS Essential hypertension 09132470 I10 Well controlled off medication Asymptomat ic at this timeWill continue to monitor closely Hyperglyce anthony due to type 2 diabetes mellitus [id number] 09491 E11.65 Chronic, current status unknownPt reports well controlled off medication .Asymptoma tic at this time.Will monitor for recurrence . Gastroesop hageal reflux disease without esophagitis 128241896 K21.9 Chronic, stableAnti -reflux measures reviewed: avoid spicy foods, recumbency after eating. Small meals recommende d. Take medication on empty stomach with full glass water.Omep razole 40mg daily Mood disorder 97800914 F 39 Chronic, stableAll mental health meds, except sertraline managed by psych (Dr. Rod) .Ok to resume sertraline . Start with 1/2 tab (50mg) daily x 7 days, then increase to 1 tab (100mg). Recommend pt discuss increases with Dr. Rod. Anemia 204645814 D64.9 Chronic, current status unknownRec ommend a daily OTC iron supplement , 325 mg daily. Take with OJ to promote absorption . May cause constipati on/dark stools. OTC colace okay. We will repeat iron studies with routine labs. Patient ne w to provider [id number] Z76.89 [facility] ring care from Dr. Hale due to lack of transporta tion. [id number] MALIKA Shine [facility] [address] [place] [address] 07/16/2023 11:21:23 07/16/2023 13:36:11 [id number] MALIKA Travis-Meghan [facility] [address] [place] [address] 02/10/2024 15:00:49 02/10/2024 16:24:13 Mass of skin of neck [id number] R22.1 -mass noted to posterior L neck, has been there for approx 2 years-note s growing and shrinking of the mass- feel s like a big knot under the skin -occ notes pain-firm to touch on exam-US ordered to both areas-refe rral to derm given Mass of ear structure 30 0673440 R22.0 -notes lesion to left ear lobe that has been there for about 4 years-has tried popping the lesion, notes pinkish discharge- no pain noted-soft pliable to touch Health Concerns Section Related Observation LastModified by Organization Detai ls LastModified Time None Recorded Concern Status LastModified by Organization Details LastModified Time None Recorded Advance Directives Directive None Recorded Payers Encounter Date Sequence Insurance Name Policy Number Policy Carreno Covered Member ID Carreno Member ID Guarantor Name 06/18/2023 1 [facility] (MEDICAID HMO) [id number] Yonathan Ax [id number] Yonathan Ax 07/16/2023 1 [facility] (MEDICAID HMO) [id number] Yonathan Ax [id number] Yonathan Ax 02/10/2024 1 [facility] (MEDICAID HMO) [id number] Yonathan Ax [id number] Yonathan Ax Notes Date Note Type Note Provider Name and Address Organization Details Recorded Time 06/18/2023 text/html 1. Pt in office with mother to establish care. Was previously seeing Dr. Hlae, but changing d/t distance.2. Pt and mother report all mental health meds, except sertraline, are managed by psych.3. Needs refills of maintenance meds for anemia.4. Refill of acid reflux meds.5. Refill cholesterol meds.6. Reports no current meds for htn.7. Reports no meds for DM. MALIKA Shine [address], [place], [address], [employer] 06/18/2023 15:10:38 02/10/2024 text/html pt here for lesions to skin ARACELI Travis [address], [place], [address], [facility] [employer] 02/10/2024 16:06:06
[2024-12-23 06:04] VITALS: BP 138/92; PULSE 98; RESP 15; O2SAT 100
== END 2024-12-23 06:05 | disposition home or self-care (01) ==
LOC: ANHED 05:56
PROVIDERS: Emergency Provider Emergency Medicine; PCP Family Medicine
DX: S05.02XA Injury of conjunctiva and corneal abrasion without foreign body, left eye, initial encounter (principal); X58.XXXA Exposure to other specified factors, initial encounter; I10 Essential (primary) hypertension; E78.5 Hyperlipidemia, unspecified; G47.33 Obstructive sleep apnea (adult) (pediatric); F20.9 Schizophrenia, unspecified; E11.9 Type 2 diabetes mellitus without complications
CPT/HCPCS: 99283; A9270

== ENCOUNTER 2025-08-01 11:27 | Emergency (ER) | payer OTHER, SELFPAY ==
[2025-08-01 11:40] VITALS: BP 99/66; PULSE 124; RESP 20; TEMP 36.7; O2SAT 97
--- NOTE | 2025-08-01 12:06 | ED.DENTAL ---
HPI - Dental/Oral General Chief complaint: Dental/Oral Stated complaint: tooth/ear pain Time Seen by Provider: 08/01/25 12:06 Source: patient Mode of arrival: ambulatory Limitations: no limitations History of Present Illness HPI Narrative: 44-year-old male presents with left lower swelling and dental pain. Patient reports dental pain for the past 2-3 months. Does a dentist. Swelling increased past 3 days. Afebrile. Has not attempted to find himself a dentist. All systems reviewed and negative except as noted above. Related Data Allergies Allergy/AdvReac Type Severity Reaction Status Date / Time Penicillins Allergy Unknown Rash Verified 08/01/25 11:52 [facility] Past Medical History Medical History Bipolar disorder Blind left eye DDD (degenerative disc disease) Diabetes Essential tremor HLD (hyperlipidemia) HTN (hypertension) Hypomagnesemia MARTA (obstructive sleep apnea) Schizophrenia Tobacco abuse Comments At time of signature, agree with nursing past medical, surgical, social and family history. There is no relevant family history pertinent to the presenting complaint. Exam Narrative: GENERAL: This is a well-nourished, well-developed patient, in no apparent distress. HEAD: normocephalic, atraumatic. EYES: PERRL. Sclera clear/white. Vision is grossly intact. EARS: External ears normal NOSE: External nose normal MOUTH: patient has multiple decayed, broken teeth. Significant swelling to left side. Possible abscess. NECK: Neck supple, non-tender without lymphadenopathy, masses or thyromegaly. CARDIOVASCULAR: Regular rate and rhythm without murmurs, gallops, or rubs. RESPIRATORY: Clear to auscultation. Breath sounds equal bilaterally. No wheezes, rales, or rhonchi. SKIN: warm, Dry, intact with no suspicious lesions or rash, good texture and turgor. NEURO: awake, alert, and oriented to person, place and time. There were no obvious focal neurologic abnormalities. EXTREMITIES: No joint tenderness, effusion, or edema noted. Course Course Level of Care: Express Care Visit Vital Signs Vital signs: Vital Signs Temperature 36.7 C 08/01/25 11:40 Pulse Rate 124 H 08/01/25 11:40 Respiratory Rate 20 08/01/25 11:40 Blood Pressure 99/66 L 08/01/25 11:40 Pulse Oximetry 97 08/01/25 11:40 Oxygen Delivery Room Air 08/01/25 11:40 Temperature 36.7 C 08/01/25 11:40 Pulse Rate 124 H 08/01/25 11:40 Respiratory Rate 20 08/01/25 11:40 Blood Pressure 99/66 L 08/01/25 11:40 Pulse Oximetry 97 08/01/25 11:40 Oxygen Delivery Room Air 08/01/25 11:40 HR 98 auscultated. BP 118/70 manually MDM - Dental/Oral MDM Narrative Medical decision making narrative: Prescribed clindamycin for dental infection. Given dental clinic list for follow-up. Recommend he go to the ER for any worsening of symptoms. Discharge Plan Discharge Clinical Impression: Dental infection Patient Disposition: Home Condition: Stable Instructions: Antibiotic Form, Dental Abscess (ED) Additional Instructions: take antibiotic as prescribed until gone. Schedule follow-up appointment with dentist. Patient Language: Polish Prescriptions: New clindamycin HCl 300 mg capsule 300 mg PO QID 10 Days Qty: 40 0RF ibuprofen 800 mg tablet 800 mg PO TID PRN (Reason: pain) Qty: 30 0RF Follow-up/Referrals: UNKNOWN,DOCTOR [Primary Care Provider] Time of Disposition: 12:13
== END 2025-08-01 12:30 | disposition home or self-care (01) ==
PROVIDERS: Emergency Provider Nurse Practitioner Family
DX: K04.7 Periapical abscess without sinus (principal); E11.9 Type 2 diabetes mellitus without complications; I10 Essential (primary) hypertension; E78.5 Hyperlipidemia, unspecified; H54.62 Unqualified visual loss, left eye, normal vision right eye
CPT/HCPCS: 99213; G0463